=== PATIENT | male | born 1990 | race Caucasian/White ===

== ENCOUNTER 2017-02-08 05:32 | Observation (INO) | payer SELFPAY ==
[2017-02-08] VITALS (7 sets, daily range): BP systolic 106–133; BP diastolic 52–84; PULSE 68–115; RESP 16–18; TEMP 98.1–98.7; O2SAT 95–98
[~2017-02-08] VITALS: Ht 170.2 cm; Wt 64.0 kg
--- NOTE | 2017-02-08 05:55 | PD ---
HPI Chief Complaint: Alcohol/Drug Intoxication Time Seen by Provider: 05:40 Travel History International Travel<30 days: No Contact w/Intl Traveler<30days: No Traveled to known affect area: No History of Present Illness HPI 26-year-old male was brought in by Police Department under [employer] act. Patient was found this morning unsteady on his feet and with confusion. Patient is unable to tell me whether he is abusing any alcohol or drugs. Patient denies any headache. Patient denies any chest pain or shortness of breath. Patient denies abdominal pain. Patient denies any focal weakness or numbness of extremity. Patient states that he has history hepatitis C. Patient has been to the emergency room several times in the past with history of polysubstance abuse and substance-induced mood disorder. PFSH Past Medical History Hx Anticoagulant Therapy: No ADD: Yes Arthritis: No Asthma: No Anxiety: Yes Depression: Yes Heart Rhythm Problems: No Cardiovascular Problems: No High Cholesterol: No Chemotherapy: No Chest Pain: Yes (Tests neg on admit, maybe stress) Congestive Heart Failure: No COPD: No Cerebrovascular Accident: No Diabetes: No Diminished Hearing: No Gastrointestinal Disorders: No GERD: No Genitourinary: No Hepatitis: Yes (hep c) Hiatal Hernia: No Hypertension: No Kidney Stones: No Musculoskeletal: No Neurologic: No Psychiatric: No Reproductive: No Respiratory: No Migraines: No Renal Failure: No Seizures: No Sleep Apnea: No Ulcer: No Past Surgical History Abdominal Surgery: No Cardiac Surgery: No Ear Surgery: No Endocrine Surgery: No Eye Surgery: No Genitourinary Surgery: No Gynecologic Surgery: No Hysterectomy: No Neurologic Surgery: No Oral Surgery: No Thoracic Surgery: No Other Surgery: No Social History Alcohol Use: Yes (EVERYDAY ) Tobacco Use: Yes (1/2 PPD) Substance Use: Yes (HEROIN, DILAUDID, COCAINE) Allergies-Medications (Allergen,Severity, Reaction): Coded Allergies: Egg Allergy (Verified Allergy, Unknown, rash, 08/31/16) developes light skin rash Reported Meds & Prescriptions Reported Meds & Active Scripts Active No Active Prescriptions or Reported Medications Review of Systems General / Constitutional: No: Fever Eyes: No: Visual changes HENT: No: Headaches Cardiovascular: No: Chest Pain or Discomfort Respiratory: No: Shortness of Breath Gastrointestinal: No: Abdominal Pain Genitourinary: No: Dysuria Musculoskeletal: No: Pain Skin: No Rash Neurologic: No: Weakness Psychiatric: No: Depression Endocrine: No: Polydipsia Hematologic/Lymphatic: No: Easy Bruising Physical Exam Narrative GENERAL: Well-nourished, well-developed patient. SKIN: Warm and dry. HEAD: Normocephalic. EYES: No scleral icterus. No injection or drainage. NECK: Supple, trachea midline. No JVD or lymphadenopathy. CARDIOVASCULAR: Regular rate and rhythm without murmurs, gallops, or rubs. RESPIRATORY: Breath sounds equal bilaterally. No accessory muscle use. GASTROINTESTINAL: Abdomen soft, non-tender, nondistended. MUSCULOSKELETAL: No cyanosis, or edema. BACK: Nontender without obvious deformity. No CVA tenderness. Neurologic exam: Patient with confusion. Patient moves all extremity well. No obvious focal neurological deficit. Data Data Last Documented VS Vital Signs Date Time Temp Pulse Resp B/P Pulse Ox O2 Delivery O2 Flow Rate FiO2 02/08/17 05:38 98.1 115 18 133/84 98 Orders Complete Blood Count With Diff (02/08/17 05:50) Comprehensive Metabolic Panel (02/08/17 05:50) Drug Screen, Random Urine (02/08/17 05:50) Alcohol (Ethanol) (02/08/17 05:50) Iv Access Insert/Monitor (02/08/17 05:50) Ecg Monitoring (02/08/17 05:50) Oximetry (02/08/17 05:50) Restraints Non-Violent GURVINDER.Q3H (02/08/17 06:08) Lorazepam Inj (Ativan Inj) (02/08/17 06:15) Labs Laboratory Tests Test 02/08/17 05:54 White Blood Count 11.3 TH/MM3 Red Blood Count 4.36 MIL/MM3 Hemoglobin 13.8 GM/DL Hematocrit 39.7 % Mean Corpuscular Volume 91.1 FL Mean Corpuscular Hemoglobin 31.7 PG Mean Corpuscular Hemoglobin 34.8 % Concent Red Cell Distribution Width 12.9 % Platelet Count 211 TH/MM3 Mean Platelet Volume 9.3 FL Neutrophils (%) (Auto) 74.3 % Lymphocytes (%) (Auto) 14.8 % Monocytes (%) (Auto) 9.7 % Eosinophils (%) (Auto) 0.8 % Basophils (%) (Auto) 0.4 % Neutrophils # (Auto) 8.4 TH/MM3 Lymphocytes # (Auto) 1.7 TH/MM3 Monocytes # (Auto) 1.1 TH/MM3 Eosinophils # (Auto) 0.1 TH/MM3 Basophils # (Auto) 0.0 TH/MM3 CBC Comment DIFF FINAL Differential Comment MDM Medical Decision Making Medical Screen Exam Complete: Yes Emergency Medical Condition: Yes Differential Diagnosis Differential diagnosis including substance-induced mood disorder, electrolyte abnormality, dehydration, psychiatric issues. Narrative Course 26-year-old male was brought in by Police Department under [facility] for possible substance abuse. Patient with history of substance-induced mood disorder in the past. Patient will be monitor. Patient is agitated. Ativan 1 mg IV given. May repeat Ativan again. Patient was positive for cocaine in the past. Scripts No Active Prescriptions or Reported Meds Chano Mejía MD Feb 08, 2017 05:55
[2017-02-08 06:14] LABS: AUTOMATED NEUTROPHIL # 8.4 TH/MM3 (1.8-7.7); BASOPHIL % 0.4 % (0.0-2.0); EOSINOPHIL # 0.1 TH/MM3 (0-0.4); EOSINOPHIL % 0.8 % (0.0-4.0); HEMATOCRIT 39.7 % (39.0-51.0); HEMO FLAGS DIFF FINAL; LYMPH % 14.8 % (9.0-44.0); LYMPHOCYTE # 1.7 TH/MM3 (1.0-4.8); MEAN CELL VOLUME 91.1 FL (80.0-100.0); MEAN CORPUSCULAR HEMOGLOBIN 31.7 PG (27.0-34.0); MEAN CORPUSCULAR HGB CONC 34.8 % (32.0-36.0); MONO % 9.7 % (0.0-8.0); NEUT % 74.3 % (16.0-70.0); PLATELET COUNT 211 TH/MM3 (150-450); RED BLOOD COUNT 4.36 MIL/MM3 (4.50-5.90); RED CELL DISTRIBUTION WIDTH 12.9 % (11.6-17.2); WHITE BLOOD COUNT 11.3 TH/MM3 (4.0-11.0)
[2017-02-08] MEDS ORDERED: LORazepam 2 MG/ML VIAL IV PUSH ONE ×2 (06:15→06:45)
[2017-02-08 06:37] LABS: ALKALINE PHOSPHATASE 78 U/L (45-117); ALT (GPT) 188 U/L (12-78); ANION GAP 10 MEQ/L (5-15); AST (GOT) 92 U/L (15-37); BICARBONATE 25.1 MEQ/L (21.0-32.0); BLOOD UREA NITROGEN 17 MG/DL (7-18); CHLORIDE 103 MEQ/L (98-107); GLOMERULAR FILTRATION RATE 52 ML/MIN (>89); POTASSIUM 3.4 MEQ/L (3.5-5.1); SODIUM (NA) 138 MEQ/L (136-145); TOTAL BILIRUBIN ADULT 0.4 MG/DL (0.2-1.0)
[2017-02-08] MEDS ORDERED: SODIUM CHLOR 0.9% 1000 ML INJ 1,000 ML IV ONE (11:30)
[2017-02-08 12:18] LABS: AMPHETAMINE, URINE NEG (NEG); BARBITURATES, URINE NEG (NEG); COCAINE, URINE POS (NEG)
--- NOTE | 2017-02-08 13:17 | RADRPT ---
EXAM DATE/TIME: 02/08/2017 12:55 [facility] COMPARISON: No previous studies available for comparison. INDICATIONS : Altered mental status today. RADIATION DOSE: 56.35 CTDIvol (mGy) MEDICAL HISTORY : Hepatitis C. SURGICAL HISTORY : Non-responsive. ENCOUNTER: Initial ACUITY: 1 day PAIN SCALE: Non-responsive LOCATION: Bilateral head TECHNIQUE: Multiple contiguous axial images were obtained of the head. Using automated exposure control and adj ustment of the mA and/or kV according to patient size, radiation dose was kept as low as reasonably a chievable to obtain optimal diagnostic quality images. FINDINGS: CEREBRUM: The ventricles are normal for age. No evidence of midline shift, mass lesion, hemorrhage or acute in farction. No extra-axial fluid collections are seen. POSTERIOR FOSSA: The cerebellum and brainstem are intact. The 4th ventricle is midline. The cerebellopontine angle i s unremarkable. EXTRACRANIAL: The visualized portion of the orbits is intact. SKULL: The calvaria is intact. No evidence of skull fracture. CONCLUSION: Normal examination. Rosamaria Torres MD on February 08, 2017 at 13:15 Board Certified Radiologist. This report was verified electronically.
--- NOTE | 2017-02-08 14:44 | PD ---
Data Data Last Documented VS Vital Signs Date Time Temp Pulse Resp B/P Pulse Ox O2 Delivery O2 Flow Rate FiO2 02/08/17 09:30 86 16 118/56 98 Room Air 02/08/17 05:38 98.1 Orders Complete Blood Count With Diff (02/08/17 05:50) Comprehensive Metabolic Panel (02/08/17 05:50) Drug Screen, Random Urine (02/08/17 05:50) Alcohol (Ethanol) (02/08/17 05:50) Iv Access Insert/Monitor (02/08/17 05:50) Ecg Monitoring (02/08/17 05:50) Oximetry (02/08/17 05:50) Restraints Non-Violent GURVINDER.Q3H (02/08/17 06:08) Lorazepam Inj (Ativan Inj) (02/08/17 06:15) Restraints Violent (02/08/17 06:38) Lorazepam Inj (Ativan Inj) (02/08/17 06:45) Sodium Chlor 0.9% 1000 Ml Inj (Ns 1000 M (02/08/17 11:30) Ct Brain W/O Iv Contrast(Rout) (02/08/17 ) Cath For Specimen (02/08/17 11:26) Admit Order (Ed Use Only) (02/08/17 14:40) Labs Laboratory Tests Test 02/08/17 02/08/17 05:54 11:35 White Blood Count 11.3 TH/MM3 Red Blood Count 4.36 MIL/MM3 Hemoglobin 13.8 GM/DL Hematocrit 39.7 % Mean Corpuscular Volume 91.1 FL Mean Corpuscular Hemoglobin 31.7 PG Mean Corpuscular Hemoglobin 34.8 % Concent Red Cell Distribution Width 12.9 % Platelet Count 211 TH/MM3 Mean Platelet Volume 9.3 FL Neutrophils (%) (Auto) 74.3 % Lymphocytes (%) (Auto) 14.8 % Monocytes (%) (Auto) 9.7 % Eosinophils (%) (Auto) 0.8 % Basophils (%) (Auto) 0.4 % Neutrophils # (Auto) 8.4 TH/MM3 Lymphocytes # (Auto) 1.7 TH/MM3 Monocytes # (Auto) 1.1 TH/MM3 Eosinophils # (Auto) 0.1 TH/MM3 Basophils # (Auto) 0.0 TH/MM3 CBC Comment DIFF FINAL Differential Comment Sodium Level 138 MEQ/L Potassium Level 3.4 MEQ/L Chloride Level 103 MEQ/L Carbon Dioxide Level 25.1 MEQ/L Anion Gap 10 MEQ/L Blood Urea Nitrogen 17 MG/DL Creatinine 1.60 MG/DL Estimat Glomerular Filtration 52 ML/MIN Rate Random Glucose 110 MG/DL Calcium Level 9.2 MG/DL Total Bilirubin 0.4 MG/DL Aspartate Amino Transf 92 U/L (AST/SGOT) Alanine Aminotransferase 188 U/L (ALT/SGPT) Alkaline Phosphatase 78 U/L Total Protein 7.2 GM/DL Albumin 4.1 GM/DL Ethyl Alcohol Level LESS THAN 3 MG/DL Urine Opiates Screen NEG Urine Barbiturates Screen NEG Urine Amphetamines Screen NEG Urine Benzodiazepines Screen NEG Urine Cocaine Screen POS Urine Cannabinoids Screen NEG MDM Supervised Visit with [facility]: No Narrative Course This case is checked out to me by Dr. Mejía at 7 AM. As patient has a long history of substance abuse and does have cocaine positive tox screen. He has altered mental status. Initially was agitated and he did get leather restraints and a dose of IV Ativan at 6:45 AM I reviewed his labs which are essentially normal I did a brain CT due to the extended period of altered mental status and it is normal I expected him to wake up after a couple of hours and be discharged but his mental status persists as poor. He is very lethargic and confused and been sleeping for many hours. I've been observing him now for 9 hours and he is still altered and lethargic. Due to this factor I have discussed with the medical residents who will do a 23 are observation for altered mental status Diagnosis Primary Impression: Altered mental status Qualified Code: R40.1 - Stupor Additional Impression: Substance abuse Admitting Information Admitting Physician Requests: Observation Scripts No Active Prescriptions or Reported Meds Kranthi Matute MD Feb 08, 2017 14:43
[2017-02-08] MEDS ORDERED: SODIUM CHLORIDE 0.9% FLUSH 10 ML FLUSH IVF PRN (16:15)
[2017-02-08] MEDS ORDERED: LORazepam 2 MG/ML VIAL IV PUSH PRN ×4 (16:15)
[2017-02-08] MEDS ORDERED: LORazepam 1 MG TAB PO PRN (16:15)
[2017-02-08] MEDS ORDERED: FLUMAZENIL 0.5 MG/5 ML VIAL IV PUSH PRN (16:15)
[2017-02-08] MEDS ORDERED: LORazepam 2 MG TAB PO PRN (16:15)
[2017-02-08] MEDS ORDERED: NALOXONE HCL 0.4 MG/ML AMP IV PRN (16:15)
[2017-02-08] MEDS ORDERED: SODIUM CHLOR 0.9% 1000 ML INJ 1,000 ML IV SCH (16:30)
--- NOTE | 2017-02-08 16:42 | HHI.HP ---
[facility] Service Family Medicine Primary Care Physician Unknown Admission Diagnosis persistent AMS from substance abuse Diagnoses: International Travel<30 Days: No Contact w/Intl Traveler<30days: No Known Affected Area: No History of Present Illness Patient is a 26 year old male with psychiatric history presents under [facility] for altered mental status. History is difficult to obtain from patient as he is uncooperative and goes back to sleep quickly. Per EMR records, patient has a history of polysubstance abuse and substance induced mood disorder. His most recent presentation to [facility] was September 04; at that time he presented voluntarily with chest pain and suicidal ideation. He was evaluated by psychiatrist in the ED at that time, suspected to be malingering due to homelessness. He was discharged to [facility] waiting list at that time. The patient offers little during the interview; he answers yes or no questions, some which were repeated, without consistent answers. He does endorse that he used alcohol at 10, not noting whether he met this morning or last night or more distantly. He does not endorse or deny the use of cocaine when it is noted that it was found in his urine. He offers no answers when asked about review of systems other than his chest hurts "a little." (Linda Kumar MD R1) Review of Systems ROS Limitations: Clinical Condition, Intoxication, Uncooperative Cardiovascular: COMPLAINS OF: Chest pain ("a little") (Linda Kumar MD R1) Past Family Social History Past Medical History Patient does not provide. Per EMR, it does not appear that he has any medical conditions but does have a history of polysubstance use and prior suicidal ideation most recently assessed in 08/2016. Past Surgical History Patient does not provide. Reported Medications Patient does not provide a history of medications. Reported Meds & Active Scripts Active No Active Prescriptions or Reported Medications (Linda Kumar MD R1) Allergies: Coded Allergies: Egg Allergy (Verified Allergy, Unknown, rash, 08/31/16) developes light skin rash Active Ordered Medications Inpatient Medications Enoxaparin Sodium (Lovenox Inj) 40 mg Q24H SQ ; Start 02/08/17 at 17:00 Flumazenil (Romazicon Inj) 0.2 mg Q1M PRN IV PUSH SEE LABEL COMMENTS; Start at 16:15 Lorazepam (Ativan Inj) 2 mg Q15M PRN IV PUSH CIWA > 20; Start 02/08/17 at 16:15 Lorazepam (Ativan) 2 mg Q2H PRN PO CIWA 11-14; Start 02/08/17 at 16:15 Naloxone HCl 0.4 mg 0.4 mg UNSCH PRN IV SEE LABEL COMMENTS; Start 02/08/17 at 16:15 Ondansetron HCl (Zofran Odt) 4 mg Q4H PRN PO NAUSEA/VOMITING; Start 02/08/17 at 16:45 Sodium Chloride (NS 1000 ml Inj) 1,000 ml @ 100 mls/hr Q10H IV ; Start at 17:00 Sodium Chloride (NS Flush) 2 ml UNSCH PRN IVF FLUSH AFTER USING IV ACCESS; Start 02/08/17 at 16:15 Family History Unable to obtain Social History Patient endorses use of alcohol at "11" He does not offer any other history. Per EMR, he was homeless in 08/2016 (Linda Kumar MD R1) Physical Exam Vital Signs Vital Signs Date Time Temp Pulse Resp B/P Pulse Ox O2 Delivery O2 Flow Rate FiO2 02/08/17 09:30 86 16 118/56 98 Room Air 02/08/17 07:30 110 16 120/64 97 Room Air 02/08/17 05:38 98.1 115 18 133/84 98 Physical Exam GENERAL: This is a well-nourished, well-developed male, lying in bed sleeping. When he wakes up he mumbles and goes back to sleep. SKIN: There are scattered excoriations on the distal extremities bilaterally without obvious signs of track chu. No ecchymoses. Cool and dry. HEAD: Atraumatic. Normocephalic. No temporal or scalp tenderness. EYES: Pupils dilated to approximately 8 mm. They are equal round and reactive. Pupils seem to follow light but not by command. No scleral icterus. No injection or drainage. ENT: Nose without bleeding or drainage. Not cooperative with exam. Airway patent. NECK: Trachea midline. No JVD or lymphadenopathy. Patient not cooperative with range of motion exam. CARDIOVASCULAR: Regular rate and rhythm without murmurs, gallops, or rubs. RESPIRATORY: Clear to auscultation. Breath sounds equal bilaterally. No wheezes , rales, or rhonchi. GASTROINTESTINAL: Abdomen soft, non-tender, nondistended. No hepato-splenomegaly , or palpable masses. No guarding. Bowel sounds hypoactive. MUSCULOSKELETAL: Extremities without clubbing, cyanosis, or edema. No joint tenderness, effusion, or edema noted. NEUROLOGICAL: Sleeping, arousable but goes back to sleep quickly. Pupils as above. Unable to assess cranial nerves, motor, sensory, strength. Mumbles. Laboratory Laboratory Tests Test 02/08/17 02/08/17 05:54 11:35 White Blood Count 11.3 Red Blood Count 4.36 Hemoglobin 13.8 Hematocrit 39.7 Mean Corpuscular Volume 91.1 Mean Corpuscular Hemoglobin 31.7 Mean Corpuscular Hemoglobin 34.8 Concent Red Cell Distribution Width 12.9 Platelet Count 211 Mean Platelet Volume 9.3 Neutrophils (%) (Auto) 74.3 Lymphocytes (%) (Auto) 14.8 Monocytes (%) (Auto) 9.7 Eosinophils (%) (Auto) 0.8 Basophils (%) (Auto) 0.4 Neutrophils # (Auto) 8.4 Lymphocytes # (Auto) 1.7 Monocytes # (Auto) 1.1 Eosinophils # (Auto) 0.1 Basophils # (Auto) 0.0 CBC Comment DIFF FINAL Differential Comment Sodium Level 138 Potassium Level 3.4 Chloride Level 103 Carbon Dioxide Level 25.1 Anion Gap 10 Blood Urea Nitrogen 17 Creatinine 1.60 Estimat Glomerular Filtration 52 Rate Random Glucose 110 Calcium Level 9.2 Total Bilirubin 0.4 Aspartate Amino Transf 92 (AST/SGOT) Alanine Aminotransferase 188 (ALT/SGPT) Alkaline Phosphatase 78 Total Protein 7.2 Albumin 4.1 Ethyl Alcohol Level LESS THAN 3 Urine Opiates Screen NEG Urine Barbiturates Screen NEG Urine Amphetamines Screen NEG Urine Benzodiazepines Screen NEG Urine Cocaine Screen POS Urine Cannabinoids Screen NEG (Linda Kumar MD R1) Result Diagram: 02/08/17 0554 02/08/17 0554 Imaging Last Impressions Head CT 02/08/17 0000 Signed Impressions: Service Date/Time: Wednesday, February 08, 2017 12:55 - CONCLUSION: Normal examination. Rosamaria Torres MD Course In ED, patient received basic labs including CBC and CMP. He was placed on EKG monitoring and pulse oximetry. EtOH and drug screen levels were drawn. He received 2 separate 2 mg IV doses of Ativan. CT brain was performed due to persistent difficulty in arousal. (Linda Kumar MD R1) Septic Shock Reassessment Heart: Regular rate and rhythm Lungs: Clear Skin: Cold Capillary Refill: Brisk (Linda Kumar MD R1) Assessment and Plan Assessment and Plan 26-year-old male with a history of polysubstance abuse and suicidal ideation presents with altered status. Code Status Full code (Linda Kumar MD R1) Attending Attestation THIS CASE WAS DISCUSSED WITH THE RESIDENT PHYSICIAN. I HAVE REVIEWED THE RECORD AND AGREE WITH THE ABOVE NOTE AND PLAN OF CARE WAS DISCUSSED. I HAVE AUTHORIZED THE ORDER FOR PLACEMENT IN OUT-PATIENT OBSERVATION STATUS. (Gregg Ellington MD) Problem List: (1) Altered mental status Status: Acute Plan: Presented under [place] act with AMS. . Unable to obtain other history due to patient's cooperativeness. Exam unremarkable aside from pupillary dilation in mental status. Neurological exam is nonfocal. -Vital signs unremarkable -Screening labs including CBC, CMP, lactic acid unremarkable -UA is pending -EKG pending -Drug screen positive for cocaine -EtOH and salicylate studies negative -Admitting patient to observation -Maintenance IV fluids -CIWA protocol -Sitter due to EMR records of psychiatric history; we'll need to reassess patient when more alert to determine mood and if he has risk to himself or others (2) Substance abuse Status: Acute Plan: History of polysubstance abuse. Per EMR, patient may be homeless; was homeless as of 08/2016. Will discuss with patient when more cooperative. Studies as above. (3) Fluids/Electrolytes/Nutrition/Prophylaxis Status: Acute Plan: Fluids: NS @ 100ml/hr Electrolytes: monitor and replete as needed Nutrition: Regular diet DVT Prophylaxis: Lovenox 40mg subQ q24hr GI Prophylaxis: Not indicated (Linda Kumar MD R1) Problem Qualifiers (1) Altered mental status: Qualified Code: R40.1 - Stupor Linda Kumar MD R1 Feb 08, 2017 16:42 Gregg Ellington MD Feb 08, 2017 18:36
[2017-02-08] MEDS ORDERED: ONDANSETRON ODT 4 MG TAB PO PRN (16:45)
[2017-02-08] MEDS ORDERED: ENOXAPARIN SODIUM 40 MG/0.4 ML SYRINGE SQ SCH (17:00)
[2017-02-08 17:52] LABS: ACETAMINOPHEN LESS THAN 2.0 MCG/ML (10.0-30.0)
[2017-02-08 17:58] LABS: BLOOD, URINE NEG (NEG); GLUCOSE,URINE NEG (NEG); KETONE, URINE 10 mg/dL (NEG); NITRITE,URINE NEG (NEG); PH, URINE 5.5 (5.0-8.5)
[2017-02-08 18:02] LABS: URINE COLOR STRAW (YELLW/STRAW)
--- NOTE | 2017-02-08 18:35 | HHI.HP ---
HPI Service Family Medicine Primary Care Physician Unknown Admission Diagnosis persistent AMS from substance abuse Diagnoses: (1) Altered mental status (2) Substance abuse (3) Fluids/Electrolytes/Nutrition/Prophylaxis International Travel<30 Days: No Contact w/Intl Traveler<30days: No Known Affected Area: No History of Present Illness 26 yo M presenting to the ED via police under Farias act for altered mental status. Pt. is uncooperative and unwilling/unable to answer questions so history is obtained from the ED and resident note. Pt. has a h/o substance abuse and mood disorder. He was found stumbling and disoriented in the road by police and brought to the ED for evaluation. He has been seen several times in the ED for substance abuse, with the last evaluation 09/04/16 for suicidal thoughts (found to be malingering by psychiatry). Upon presentation to the ED, he was found to be very agitated and required restraints with leather restraints. Lab evaluation was positive for cocaine. He was given Ativan 2mg IV x2 and has been significantly sedate since that time. He was admitted for observation due to continued sedation. Review of Systems ROS Limitations: Clinical Condition, Uncooperative Past Family Social History Past Medical History Patient does not provide. Per EMR, it does not appear that he has any medical conditions but does have a history of polysubstance use and prior suicidal ideation most recently assessed in 08/2016. Past Surgical History Patient does not provide. Allergies: Coded Allergies: Egg Allergy (Verified Allergy, Unknown, rash, 08/31/16) developes light skin rash Family History Unable to obtain Social History Patient endorses use of alcohol at "11" He does not offer any other history. Per EMR, he was homeless in 08/2016 Physical Exam Vital Signs Vital Signs Date Time Temp Pulse Resp B/P Pulse Ox O2 Delivery O2 Flow Rate FiO2 02/08/17 17:00 78 16 127/68 97 Room Air 02/08/17 14:00 68 16 128/70 97 Room Air 02/08/17 12:00 78 16 125/57 95 Room Air 02/08/17 09:30 86 16 118/56 98 Room Air 02/08/17 07:30 110 16 120/64 97 Room Air 02/08/17 05:38 98.1 115 18 133/84 98 Physical Exam GENERAL: Young, healthy appearing male sleeping in bed SKIN: There are scattered excoriations on the distal extremities bilaterally without obvious signs of track chu. No ecchymoses. Cool and dry. HEAD: Atraumatic. Normocephalic. EYES: Pupils dilated to approximately 8 mm. They are equal round and reactive. No scleral icterus. No injection or drainage. NECK: Trachea midline. No JVD or lymphadenopathy. CARDIOVASCULAR: Regular rate and rhythm without murmurs, gallops, or rubs. RESPIRATORY: Clear to auscultation anteriorly GASTROINTESTINAL: Abdomen soft, non-tender, nondistended. No hepato- splenomegaly. MUSCULOSKELETAL: Extremities without clubbing, cyanosis, or edema. NEUROLOGICAL: Sleeping, arousable but uncooperative. Unable to test strength or cranial nerves Laboratory Laboratory Tests Test 02/08/17 02/08/17 02/08/17 05:54 11:35 17:14 White Blood Count 11.3 Red Blood Count 4.36 Hemoglobin 13.8 Hematocrit 39.7 Mean Corpuscular Volume 91.1 Mean Corpuscular Hemoglobin 31.7 Mean Corpuscular Hemoglobin 34.8 Concent Red Cell Distribution Width 12.9 Platelet Count 211 Mean Platelet Volume 9.3 Neutrophils (%) (Auto) 74.3 Lymphocytes (%) (Auto) 14.8 Monocytes (%) (Auto) 9.7 Eosinophils (%) (Auto) 0.8 Basophils (%) (Auto) 0.4 Neutrophils # (Auto) 8.4 Lymphocytes # (Auto) 1.7 Monocytes # (Auto) 1.1 Eosinophils # (Auto) 0.1 Basophils # (Auto) 0.0 CBC Comment DIFF FINAL Differential Comment Sodium Level 138 Potassium Level 3.4 Chloride Level 103 Carbon Dioxide Level 25.1 Anion Gap 10 Blood Urea Nitrogen 17 Creatinine 1.60 Estimat Glomerular Filtration 52 Rate Random Glucose 110 Calcium Level 9.2 Total Bilirubin 0.4 Aspartate Amino Transf 92 (AST/SGOT) Alanine Aminotransferase 188 (ALT/SGPT) Alkaline Phosphatase 78 Total Protein 7.2 Albumin 4.1 Ethyl Alcohol Level LESS THAN 3 Urine Color STRAW Urine Turbidity CLEAR Urine pH 5.5 Urine Specific [place] 1.003 Urine Protein NEG Urine Glucose (UA) NEG Urine Ketones 10 Urine Occult Blood NEG Urine Nitrite NEG Urine Bilirubin NEG Urine Urobilinogen LESS THAN 2.0 Urine Leukocyte Esterase NEG Urine RBC LESS THAN 1 Urine WBC LESS THAN 1 Urine Opiates Screen NEG Urine Barbiturates Screen NEG Urine Amphetamines Screen NEG Urine Benzodiazepines Screen NEG Urine Cocaine Screen POS Urine Cannabinoids Screen NEG Lactic Acid Level 0.7 Salicylates Level LESS THAN 1.7 Acetaminophen Level LESS THAN 2.0 Result Diagram: 02/08/17 0554 02/08/17 0554 Imaging Last Impressions Head CT 02/08/17 0000 Signed Impressions: Service Date/Time: Wednesday, February 08, 2017 12:55 - CONCLUSION: Normal examination. Rosamaria Torres MD Assessment and Plan Assessment and Plan 26-year-old male with a history of polysubstance abuse and suicidal ideation presents with altered status. Problem List: (1) Altered mental status Status: Acute Plan: Presented under Farias act with AMS. . Unable to obtain other history due to patient's cooperativeness. Exam unremarkable aside from pupillary dilation in mental status. Neurological exam is nonfocal. -Vital signs unremarkable -Screening labs including CBC, CMP, lactic acid unremarkable -UA is pending -EKG pending -Drug screen positive for cocaine -EtOH and salicylate studies negative -Admitting patient to observation -Maintenance IV fluids -CIWA protocol (2) Substance abuse Status: Acute Plan: History of polysubstance abuse. Per EMR, patient may be homeless; was homeless as of 08/2016. Will discuss with patient when more cooperative. Studies as above. (3) Fluids/Electrolytes/Nutrition/Prophylaxis Status: Acute Plan: Fluids: NS @ 100ml/hr Electrolytes: monitor and replete as needed Nutrition: Regular diet DVT Prophylaxis: Lovenox 40mg subQ q24hr GI Prophylaxis: Not indicated Physician Certification 2 Midnight Certification Type: Admission for Inpatient Services Order for Inpatient Services The services are ordered in accordance with Medicare regulations or non- Medicare payer requirements, as applicable. In the case of services not specified as inpatient-only, they are appropriately provided as inpatient services in accordance with the 2-midnight benchmark. Estimated LOS (days): 2 2 days is the estimated time the patient will need to remain in the hospital, assuming treatment plan goals are met and no additional complications. Post-Hospital Plan: Home Problem Qualifiers (1) Altered mental status: Qualified Code: R40.1 - Gregg Hinson MD Feb 08, 2017 18:35
[2017-02-08] MEDS: SODIUM CHLOR 0.9% 1000 ML INJ 1,000 ML IV SCH (18:45)
[2017-02-08 18:50] LABS: CREATINE KINASE 958 U/L (39-308)
[2017-02-08 19:15] LABS: CKMB 11.1 NG/ML (0.5-3.6)
[2017-02-08] MEDS ORDERED: CIPROFLOXACIN 500 MG TAB PO SCH (21:00)
[2017-02-09] VITALS: BP 110/57; PULSE 83; RESP 18; TEMP 98.4; O2SAT 97
[2017-02-09 04:00] VITALS: BP 107/51; PULSE 72; RESP 18; TEMP 97; O2SAT 99
[2017-02-09] MEDS: SODIUM CHLOR 0.9% 1000 ML INJ 1,000 ML IV SCH ×2 (05:55→08:28)
[2017-02-09 07:24] LABS: AUTOMATED NEUTROPHIL # 5.2 TH/MM3 (1.8-7.7); BASOPHIL % 0.4 % (0.0-2.0); EOSINOPHIL # 0.1 TH/MM3 (0-0.4); EOSINOPHIL % 1.2 % (0.0-4.0); HEMATOCRIT 40.7 % (39.0-51.0); HEMO FLAGS DIFF FINAL; LYMPH % 19.6 % (9.0-44.0); LYMPHOCYTE # 1.5 TH/MM3 (1.0-4.8); MEAN CELL VOLUME 93.8 FL (80.0-100.0); MEAN CORPUSCULAR HEMOGLOBIN 31.5 PG (27.0-34.0); MEAN CORPUSCULAR HGB CONC 33.6 % (32.0-36.0); MONO % 11.8 % (0.0-8.0); PLATELET COUNT 172 TH/MM3 (150-450); RED BLOOD COUNT 4.34 MIL/MM3 (4.50-5.90); RED CELL DISTRIBUTION WIDTH 13.3 % (11.6-17.2); WHITE BLOOD COUNT 7.7 TH/MM3 (4.0-11.0)
[2017-02-09 07:48] LABS: ALKALINE PHOSPHATASE 66 U/L (45-117); ALT (GPT) 187 U/L (12-78); ANION GAP 8 MEQ/L (5-15); AST (GOT) 104 U/L (15-37); BICARBONATE 23.6 MEQ/L (21.0-32.0); BLOOD UREA NITROGEN 9 MG/DL (7-18); CHLORIDE 109 MEQ/L (98-107); CREATINE KINASE 724 U/L (39-308); GLOMERULAR FILTRATION RATE 47 ML/MIN (>89); POTASSIUM 4.1 MEQ/L (3.5-5.1); SODIUM (NA) 141 MEQ/L (136-145); TOTAL BILIRUBIN ADULT 0.2 MG/DL (0.2-1.0)
[2017-02-09 08:15] VITALS: BP 100/53; PULSE 75; RESP 18; TEMP 97.2; O2SAT 97
[2017-02-09 08:26] LABS: CKMB 6.3 NG/ML (0.5-3.6)
[2017-02-09] MEDS ORDERED: SODIUM CHLOR 0.9% 1000 ML INJ 1,000 ML IV ONE (10:30)
--- NOTE | 2017-02-09 10:31 | HHI.FPPN ---
Subjective Remarks Patient awake and alert. States that he last used heroin and cocaine a few days ago. He feels well this morning. Has not ordered breakfast this morning. ( Zainab Kumar MD) Objective Vitals Vital Signs Date Time Temp Pulse Resp B/P Pulse Ox O2 Delivery O2 Flow Rate FiO2 02/09/17 08:15 97.2 75 18 100/53 97 02/09/17 04:00 97.0 72 18 107/51 99 02/09/17 00:00 98.4 83 18 110/57 97 02/08/17 20:00 98.7 108 18 106/52 97 02/08/17 17:00 78 16 127/68 97 Room Air 02/08/17 14:00 68 16 128/70 97 Room Air 02/08/17 12:00 78 16 125/57 95 Room Air I/O 02/08/17 02/08/17 02/08/17 02/09/17 02/09/17 02/09/17 07:00 15:00 23:00 07:00 15:00 23:00 Intake Total 360 ml Balance 360 ml Intake Oral 360 ml # Voids 2 3 (Zainab Kumar MD) Result Diagram: 02/09/17 0640 02/09/17 0640 Objective Remarks GENERAL: This is a well-nourished, well-developed male, lying in bed, alert SKIN: There are scattered excoriations on the distal extremities bilaterally without obvious signs of track chu. No ecchymoses. Cool and dry. HEAD: Atraumatic. Normocephalic. No temporal or scalp tenderness. EYES: No scleral icterus. No injection or drainage. ENT: Nose without bleeding or drainage. Not cooperative with exam. Airway patent. NECK: Trachea midline. No JVD or lymphadenopathy. CARDIOVASCULAR: Regular rate and rhythm without murmurs, gallops, or rubs. RESPIRATORY: Clear to auscultation. Breath sounds equal bilaterally. No wheezes , rales, or rhonchi. GASTROINTESTINAL: Abdomen soft, non-tender, nondistended. MUSCULOSKELETAL: Extremities without clubbing, cyanosis, or edema. No joint tenderness, effusion, or edema noted. NEUROLOGICAL: Awake and alert. CN II-XII grossly intact. No motor deficit noted on extremity exam. (Zainab Kumar MD) Urinary Catheter: No (Zainab Kumar MD) Vascular Central Line Catheter: No (Zainab Kumar MD) A/P Assessment and Plan 26-year-old male with a history of polysubstance abuse and suicidal ideation presents with altered status. sdw: Drs. Aixa Kumar and Rakel Discharge Planning dc home today (Zainab Kumar MD) Attending Attestation Pt. examined and case discussed with resident physicians I have read the above note and agree with the assessment/plan as discussed with me I was involved in all medical decision making for this patient Gregg Ellington MD (Gregg Ellington MD) Problem List: (1) Altered mental status Status: Acute Plan: Presented under Farias act with AMS, now awake and alert. NO neurological deficit noted. -Vital signs unremarkable -Screening labs including CBC, CMP, lactic acid unremarkable -Head CT normal -UA unremarkable -Drug screen positive for cocaine -EtOH and salicylate studies negative -DC home -Follow up with PCP (2) Substance abuse Status: Chronic Plan: History of polysubstance abuse. Per EMR, patient may be homeless; was homeless as of 08/2016. Encouraged substance cessation, definitely use clean needles if continued IVDU (3) ADI (acute kidney injury) Status: Acute Plan: GFR decreased from 52 to 47. No IV fluids being given at this time -1L NS [place] now then dc home, to follow up with PCP (4) Fluids/Electrolytes/Nutrition/Prophylaxis Status: Acute Plan: Fluids: NS @ 100ml/hr Electrolytes: monitor and replete as needed Nutrition: Regular diet DVT Prophylaxis: Lovenox 40mg subQ q24hr GI Prophylaxis: Not indicated (Zainab Kumar MD) Problem Qualifiers (1) Altered mental status: Qualified Code: R40.1 - Zainab Mayorga MD Feb 09, 2017 10:31 Gregg Ellington MD Feb 09, 2017 17:19
--- NOTE | 2017-02-09 10:41 | HHI.DCPOC ---
Discharge Care Plan Diagnosis: (1) Polysubstance dependence (2) Altered mental status (3) ADI (acute kidney injury) Goals to Promote Your Health * To prevent worsening of your condition and complications, avoid continued substance abuse. Directions to Meet Your Goals Take your medications as prescribed Follow your dietary instruction Follow activity as directed Keep your appointments as scheduled Take your immunizations and boosters as scheduled If your symptoms worsen call your PCP, if no PCP go to Urgent Care Center or Emergency Room Smoking is Dangerous to Your Health. Avoid second hand smoke Call the 24-hour hour crisis hotline for domestic abuse at Zainab Kumar MD Feb 09, 2017 10:41
[2017-02-09 12:16] VITALS: BP 92/48; PULSE 82; RESP 18; TEMP 97.5; O2SAT 96
== END 2017-02-09 16:41 | disposition home or self-care (01) ==
LOC: NEPE 05:32 → NEDA 14:41 → UNDOADMOB 14:41 → N05B 18:47 → NEDA 18:47 → UNDODISOB 02-09 16:41
PROVIDERS: ADMIT Family Medicine; ATTEND Family Medicine
DX: R41.82 Altered mental status, unspecified (principal); F19.10 Other psychoactive substance abuse, uncomplicated; F39 Unspecified mood [affective] disorder; N17.9 Acute kidney failure, unspecified; B19.20 Unspecified viral hepatitis C without hepatic coma; F41.9 Anxiety disorder, unspecified; F32.9 Major depressive disorder, single episode, unspecified; F17.200 Nicotine dependence, unspecified, uncomplicated; Z59.0 Homelessness; Z91.012 Allergy to eggs
CPT/HCPCS: 70450; 80053; 80307; 81001; 82550; 82552; 82948; 83605; 84484; 85025; 96361; 96374; 96376; 99285; G0378; J2060; J7030

== ENCOUNTER 2017-04-07 07:26 | Emergency (ER) | payer SELFPAY ==
[~2017-04-07] VITALS: Ht 170.2 cm; Wt 69.0 kg
[2017-04-07 07:30] VITALS: BP 134/54; PULSE 98; RESP 15; TEMP 98.5; O2SAT 100
--- NOTE | 2017-04-07 07:41 | PD ---
HPI Chief Complaint: Psychiatric Symptoms Time Seen by Provider: 07:34 Travel History International Travel<30 days: No Contact w/Intl Traveler<30days: No Traveled to known affect area: No History of Present Illness HPI Patient is a 26-year-old male seeking psychiatric help for suicidal thoughts. Patient states she's been on a drug tender including cocaine which she last used this morning. States he's wanting to see a psychiatrist this morning and ultimately placed into a rehabilitation facility. Patient states she's been diagnosed with anxiety in the past is taking unprescribed Remeron for this. He also states he has a history of hepatitis C. He has no physical complaints at this time. Denies any chest pain abdominal pain nausea vomiting diarrhea headaches wound. PFSH Past Medical History Hx Anticoagulant Therapy: No ADD: Yes Arthritis: No Asthma: No Anxiety: Yes Depression: Yes Heart Rhythm Problems: No Cardiovascular Problems: No High Cholesterol: No Chemotherapy: No Chest Pain: Yes (Tests neg on admit, maybe stress) Congestive Heart Failure: No COPD: No Cerebrovascular Accident: No Diabetes: No Diminished Hearing: No Gastrointestinal Disorders: No GERD: No Genitourinary: No Hepatitis: Yes (hep c) Hiatal Hernia: No Hypertension: No Kidney Stones: No Musculoskeletal: No Neurologic: No Psychiatric: No Reproductive: No Respiratory: No Migraines: No Renal Failure: No Seizures: No Sleep Apnea: No Ulcer: No Past Surgical History Abdominal Surgery: No Cardiac Surgery: No Ear Surgery: No Endocrine Surgery: No Eye Surgery: No Genitourinary Surgery: No Gynecologic Surgery: No Hysterectomy: No Neurologic Surgery: No Oral Surgery: No Thoracic Surgery: No Other Surgery: No Social History Alcohol Use: Yes (EVERYDAY ) Tobacco Use: Yes (1/2 PPD) Substance Use: Yes (HEROIN, DILAUDID, COCAINE) Allergies-Medications (Allergen,Severity, Reaction): Coded Allergies: Egg Allergy (Verified Allergy, Unknown, rash, 04/07/17) developes light skin rash Reported Meds & Prescriptions Reported Meds & Active Scripts Active Reported Remeron (Mirtazapine) 15 Mg Tab 15 Mg PO HS Prozac (Fluoxetine HCl) 40 Mg Cap 40 Mg PO DAILY Review of Systems Except as stated in HPI: all other systems reviewed are Neg Physical Exam Narrative GENERAL: Well-developed well-nourished, clinically sober in no apparent distress. SKIN: Focused skin assessment warm/dry. HEAD: Atraumatic. Normocephalic. EYES: Pupils equal and round. No scleral icterus. No injection or drainage. ENT: No nasal bleeding or discharge. Mucous membranes pink and moist. NECK: Trachea midline. No JVD. CARDIOVASCULAR: Regular rate and rhythm. No murmur appreciated. RESPIRATORY: No accessory muscle use. Clear to auscultation. Breath sounds equal bilaterally. GASTROINTESTINAL: Abdomen soft, non-tender, nondistended. Hepatic and splenic margins not palpable. MUSCULOSKELETAL: No obvious deformities. No clubbing. No cyanosis. No edema. NEUROLOGICAL: Awake and alert. No obvious cranial nerve deficits. Motor grossly within normal limits. Normal speech. PSYCHIATRIC: Appropriate mood and affect; insight and judgment normal, endorses suicidal ideation, denies homicidal ideation, denies audiovisual hallucination. Data Data Last Documented VS Vital Signs Date Time Temp Pulse Resp B/P Pulse Ox O2 Delivery O2 Flow Rate FiO2 04/07/17 07:53 98.6 87 17 131/83 99 Room Air Orders Complete Blood Count With Diff (04/07/17 07:38) Comprehensive Metabolic Panel (04/07/17 07:38) Psych Screen (04/07/17 07:38) Alcohol (Ethanol) (04/07/17 07:38) Labs Laboratory Tests Test 04/07/17 08:05 White Blood Count 12.6 TH/MM3 Red Blood Count 4.75 MIL/MM3 Hemoglobin 14.4 GM/DL Hematocrit 43.0 % Mean Corpuscular Volume 90.5 FL Mean Corpuscular Hemoglobin 30.3 PG Mean Corpuscular Hemoglobin 33.5 % Concent Red Cell Distribution Width 13.4 % Platelet Count 157 TH/MM3 Mean Platelet Volume 9.4 FL Neutrophils (%) (Auto) 82.0 % Lymphocytes (%) (Auto) 6.6 % Monocytes (%) (Auto) 10.6 % Eosinophils (%) (Auto) 0.3 % Basophils (%) (Auto) 0.5 % Neutrophils # (Auto) 10.3 TH/MM3 Lymphocytes # (Auto) 0.8 TH/MM3 Monocytes # (Auto) 1.3 TH/MM3 Eosinophils # (Auto) 0.0 TH/MM3 Basophils # (Auto) 0.1 TH/MM3 CBC Comment DIFF FINAL Differential Comment Sodium Level 137 MEQ/L Potassium Level 4.6 MEQ/L Chloride Level 103 MEQ/L Carbon Dioxide Level 22.4 MEQ/L Anion Gap 12 MEQ/L Blood Urea Nitrogen 14 MG/DL Creatinine 1.10 MG/DL Estimat Glomerular Filtration 80 ML/MIN Rate Random Glucose 65 MG/DL Calcium Level 9.3 MG/DL Total Bilirubin 1.1 MG/DL Aspartate Amino Transf 385 U/L (AST/SGOT) Alanine Aminotransferase 923 U/L (ALT/SGPT) Alkaline Phosphatase 80 U/L Total Protein 7.1 GM/DL Albumin 4.0 GM/DL Ethyl Alcohol Level LESS THAN 3 MG/DL MDM Medical Decision Making Medical Screen Exam Complete: Yes Emergency Medical Condition: Yes Differential Diagnosis Depression, suicidality, substance abuse. Narrative Course 26-year-old male seen ambulate into the exam room in no apparent distress. On arrival he is calm and pleasant and is plugging his cell phone into the wall. He has no physical complaints or further workup at this time. Basic labs were ordered as part of psychiatric policy/procedure. He is medically stable for psychiatric evaluation disposition at this time. He is on a voluntary status. Patient states he wants see his psychiatrist, he has only passive suicidal statements. Therefore does not meet García act criteria at this time. Diagnosis Primary Impression: Substance induced mood disorder Condition: Stable Gianfranco Adams MD April 07, 2017 07:41
[2017-04-07] MEDS ORDERED: PROZ40CA PO (07:42)
[2017-04-07] MEDS ORDERED: REME15TA PO (07:42)
[2017-04-07 07:53] VITALS: BP 131/83; PULSE 87; RESP 17; TEMP 98.6; O2SAT 99
[2017-04-07 08:26] LABS: AUTOMATED NEUTROPHIL # 10.3 TH/MM3 (1.8-7.7); BASOPHIL # 0.1 TH/MM3 (0-0.2); BASOPHIL % 0.5 % (0.0-2.0); EOSINOPHIL % 0.3 % (0.0-4.0); HEMO FLAGS DIFF FINAL; LYMPH % 6.6 % (9.0-44.0); LYMPHOCYTE # 0.8 TH/MM3 (1.0-4.8); MEAN CELL VOLUME 90.5 FL (80.0-100.0); MEAN CORPUSCULAR HEMOGLOBIN 30.3 PG (27.0-34.0); MEAN CORPUSCULAR HGB CONC 33.5 % (32.0-36.0); MONO % 10.6 % (0.0-8.0); PLATELET COUNT 157 TH/MM3 (150-450); RED BLOOD COUNT 4.75 MIL/MM3 (4.50-5.90); RED CELL DISTRIBUTION WIDTH 13.4 % (11.6-17.2); WHITE BLOOD COUNT 12.6 TH/MM3 (4.0-11.0)
[2017-04-07 08:50] LABS: ALT (GPT) 923 U/L (12-78); ANION GAP 12 MEQ/L (5-15); AST (GOT) 385 U/L (15-37); BICARBONATE 22.4 MEQ/L (21.0-32.0); BLOOD UREA NITROGEN 14 MG/DL (7-18); CHLORIDE 103 MEQ/L (98-107); GLOMERULAR FILTRATION RATE 80 ML/MIN (>89); POTASSIUM 4.6 MEQ/L (3.5-5.1); SODIUM (NA) 137 MEQ/L (136-145)
[2017-04-07 08:52] LABS: ALKALINE PHOSPHATASE 80 U/L (45-117); TOTAL BILIRUBIN ADULT 1.1 MG/DL (0.2-1.0)
--- NOTE | 2017-04-07 11:08 | PD ---
History of Present Illness Chief Complaint: Psychiatric Symptoms Time Seen by Provider: 11:00 Travel History International Travel<30 Days: No Contact w/Intl Traveler<30days: No Known affected area: No Legal Status Legal Status: Voluntary History of Present Illness: 26-year-old male with a significantly long history of substance abuse, currently shooting IV cocaine on a frequent basis. Used cocaine this morning. Has history of hepatitis C from sharing needles. Now stating he wants help with detox/rehabilitation because his self-esteem is low. He is living with his mother in [place]. He is unemployed. He describes symptoms of depressed mood, anhedonia, decreased self-esteem, etc. He is not currently suicidal and has no suicidal or homicidal ideation, plan or intent. He states he has never tried to kill himself. This physician discussed the patient going to [facility] for further evaluation and treatment. Patient agrees to this and states this is his goal. PFSH Past Medical History Hx Anticoagulant Therapy: No ADD: Yes Arthritis: No Asthma: No Anxiety: Yes Depression: Yes Heart Rhythm Problems: No Cardiovascular Problems: No High Cholesterol: No Chemotherapy: No Chest Pain: Yes (Tests neg on admit, maybe stress) Congestive Heart Failure: No COPD: No Cerebrovascular Accident: No Diabetes: No Diminished Hearing: No Gastrointestinal Disorders: No GERD: No Genitourinary: No Hepatitis: Yes (hep c) Hiatal Hernia: No Hypertension: No Kidney Stones: No Musculoskeletal: No Neurologic: No Psychiatric: No Reproductive: No Respiratory: No Migraines: No Renal Failure: No Seizures: No Sleep Apnea: No Ulcer: No Influenza Vaccination: Yes Past Surgical History Surgical History: No Previous Surgery Abdominal Surgery: No Cardiac Surgery: No Ear Surgery: No Endocrine Surgery: No Eye Surgery: No Genitourinary Surgery: No Gynecologic Surgery: No Hysterectomy: No Neurologic Surgery: No Oral Surgery: No Thoracic Surgery: No Other Surgery: No Psychiatric History Psychiatric History Hx Psychiatric Treatment: HX OF INPATIENT PSYCH TREATENT [facility]. Obviously, the patient's main problem psychiatrically is his current substance abuse. As this is not a licensed substance abuse treatment facility, this physician feels the patient should be referred to [facility]. History of Inpatient Treatment: Yes Social History Hx Alcohol Use: Yes (EVERYDAY ) Hx Tobacco Use: Yes (1 PPD) Hx Substance Use: Yes (HEROIN, DILAUDID, COCAINE) Substance Use Type: Alcohol, Crack, Marijuana, Nicotine/Cigarettes, Prescription Medications, Heroin, Cocaine, Synth Opiates-Pain Pills Other Substances Used: Cocaine, heroin Hx of Substance Use Treatment: Yes Allergies-Medications (Allergen,Severity, Reaction): Coded Allergies: Egg Allergy (Verified Allergy, Unknown, rash, 04/07/17) developes light skin rash Reported Meds & Prescriptions Reported Meds & Active Scripts Active Reported Remeron (Mirtazapine) 15 Mg Tab 15 Mg PO HS Prozac (Fluoxetine HCl) 40 Mg Cap 40 Mg PO DAILY Review of Systems Except as stated in HPI: all other systems reviewed are Neg Exam Alert: Yes [place]: Person, Place, Date, Situation Mood: Calm Affect: Appropriate Speech: Clear, Logical Eye Contact: Normal Memory Intact: Immediate, Recent, Remote Insight/Judgement Adequate, except with regard to drug abuse. MDM Medical Decision Making Medical Record Reviewed: Yes Assessment/Plan This physician feels strongly the patient requires substance abuse treatment. He is aware of this and has been to [facility] previously for treatment. No psychiatric intervention is otherwise indicated at this time. Orders Complete Blood Count With Diff (04/07/17 07:38) Comprehensive Metabolic Panel (04/07/17 07:38) Psych Screen (04/07/17 07:38) Drug Screen, Random Urine (04/07/17 07:38) Alcohol (Ethanol) (04/07/17 07:38) Diet Regular Basic (04/07/17 Lunch) Results Vital Signs Date Time Temp Pulse Resp B/P Pulse Ox O2 Delivery O2 Flow Rate FiO2 04/07/17 07:53 98.6 87 17 131/83 99 Room Air 04/07/17 07:30 98.5 98 15 134/54 100 Laboratory Tests Test 04/07/17 08:05 White Blood Count 12.6 Red Blood Count 4.75 Hemoglobin 14.4 Hematocrit 43.0 Mean Corpuscular Volume 90.5 Mean Corpuscular Hemoglobin 30.3 Mean Corpuscular Hemoglobin 33.5 Concent Red Cell Distribution Width 13.4 Platelet Count 157 Mean Platelet Volume 9.4 Neutrophils (%) (Auto) 82.0 Lymphocytes (%) (Auto) 6.6 Monocytes (%) (Auto) 10.6 Eosinophils (%) (Auto) 0.3 Basophils (%) (Auto) 0.5 Neutrophils # (Auto) 10.3 Lymphocytes # (Auto) 0.8 Monocytes # (Auto) 1.3 Eosinophils # (Auto) 0.0 Basophils # (Auto) 0.1 CBC Comment DIFF FINAL Differential Comment Sodium Level 137 Potassium Level 4.6 Chloride Level 103 Carbon Dioxide Level 22.4 Anion Gap 12 Blood Urea Nitrogen 14 Creatinine 1.10 Estimat Glomerular Filtration 80 Rate Random Glucose 65 Calcium Level 9.3 Total Bilirubin 1.1 Aspartate Amino Transf 385 (AST/SGOT) Alanine Aminotransferase 923 (ALT/SGPT) Alkaline Phosphatase 80 Total Protein 7.1 Albumin 4.0 Ethyl Alcohol Level LESS THAN 3 Diagnosis Primary Impression: Cocaine abuse Condition: Stable Chino Woo MD April 07, 2017 11:08
== END 2017-04-07 12:01 | disposition home or self-care (01) ==
LOC: NEPE 07:26
DX: F19.94 Other psychoactive substance use, unspecified with psychoactive substance-induced mood disorder (principal); F14.10 Cocaine abuse, uncomplicated; F17.200 Nicotine dependence, unspecified, uncomplicated; Z86.59 Personal history of other mental and behavioral disorders; Z86.19 Personal history of other infectious and parasitic diseases
CPT/HCPCS: 80053; 80307; 85025; 99283

== ENCOUNTER 2017-05-07 04:40 | Emergency (ER) | payer SELFPAY ==
[~2017-05-07] VITALS: Ht 170.2 cm; Wt 68.0 kg
[~2017-05-07 04:40] MED LIST: PROZ40CA PO; REME15TA PO
[2017-05-07 04:45] VITALS: BP 152/78; PULSE 92; RESP 16; TEMP 99; O2SAT 98
[2017-05-07] MEDS ORDERED: KETOROLAC TROMETHAMINE 30 MG/ML (IVP) VIAL IV PUSH ONE (05:15)
[2017-05-07] MEDS ORDERED: SODIUM CHLOR 0.9% 1000 ML INJ 1,000 ML IV ONE (05:15)
--- NOTE | 2017-05-07 05:21 | PD ---
HPI Chief Complaint: Flank/Kidney Pain Time Seen by Provider: 05:12 Travel History International Travel<30 days: No Contact w/Intl Traveler<30days: No Traveled to known affect area: No History of Present Illness HPI 26-year-old male with history of polysubstance abuse, IV drug use, hepatitis C, presents to the ER today because he states that he used cocaine and heroin earlier today and then started having abdominal pains. He denies any vomiting, fevers, diarrhea, or any other symptoms. He states is currently a 5 out of 10. Modifying Factors: None Associated Signs & Symptoms: Abdominal pain Risk Factors: Polysubstance use PFSH Past Medical History Hx Anticoagulant Therapy: No ADD: Yes Arthritis: No Asthma: No Anxiety: Yes Depression: Yes Heart Rhythm Problems: No Cardiovascular Problems: No High Cholesterol: No Chemotherapy: No Chest Pain: Yes (Tests neg on admit, maybe stress) Congestive Heart Failure: No COPD: No Cerebrovascular Accident: No Diabetes: No Diminished Hearing: No Gastrointestinal Disorders: No GERD: No Genitourinary: No Hepatitis: Yes (hep c) Hiatal Hernia: No Hypertension: No Kidney Stones: No Musculoskeletal: No Neurologic: No Psychiatric: No Reproductive: No Respiratory: No Immunizations Current: Yes Migraines: No Renal Failure: No Seizures: No Sleep Apnea: No Ulcer: No Tetanus Vaccination: < 5 Years Influenza Vaccination: Yes Past Surgical History Abdominal Surgery: No Cardiac Surgery: No Ear Surgery: No Endocrine Surgery: No Eye Surgery: No Genitourinary Surgery: No Gynecologic Surgery: No Hysterectomy: No Neurologic Surgery: No Oral Surgery: No Thoracic Surgery: No Other Surgery: No Social History Alcohol Use: Yes (EVERYDAY ) Tobacco Use: Yes (1 PPD) Substance Use: Yes (HEROIN, DILAUDID, COCAINE) Allergies-Medications (Allergen,Severity, Reaction): Coded Allergies: Egg Allergy (Verified Allergy, Unknown, rash, 05/07/17) developes light skin rash Reported Meds & Prescriptions Reported Meds & Active Scripts Active Reported Prozac (Fluoxetine HCl) 40 Mg Cap 40 Mg PO DAILY Remeron (Mirtazapine) 15 Mg Tab 15 Mg PO HS Review of Systems Except as stated in HPI: all other systems reviewed are Neg Physical Exam Narrative GENERAL: Well-developed young white male patient currently in mild distress. Awake and oriented 3. SKIN: Focused skin assessment warm/dry. HEAD: Atraumatic. Normocephalic. EYES: Pupils equal and round. No scleral icterus. No injection or drainage. ENT: No nasal bleeding or discharge. Mucous membranes pink and moist. NECK: Trachea midline. No JVD. CARDIOVASCULAR: Regular rate and rhythm. No murmur appreciated. RESPIRATORY: No accessory muscle use. Clear to auscultation. Breath sounds equal bilaterally. GASTROINTESTINAL: Abdomen soft, mild left lower quadrant tenderness without guarding or rebound, nondistended. Hepatic and splenic margins not palpable. MUSCULOSKELETAL: No obvious deformities. No clubbing. No cyanosis. No edema. NEUROLOGICAL: Awake and alert. No obvious cranial nerve deficits. Motor grossly within normal limits. Normal speech. PSYCHIATRIC: Appropriate mood and affect; insight and judgment normal. Data Data Last Documented VS Vital Signs Date Time Temp Pulse Resp B/P Pulse Ox O2 Delivery O2 Flow Rate FiO2 05/07/17 04:45 99.0 92 16 152/78 98 Orders Complete Blood Count With Diff (05/07/17 05:07) Comprehensive Metabolic Panel (05/07/17 05:07) Lipase (05/07/17 05:07) Urinalysis - C+S If Indicated (05/07/17 05:07) Iv Access Insert/Monitor (05/07/17 05:07) Ecg Monitoring (05/07/17 05:07) Oximetry (05/07/17 05:07) Sodium Chloride 0.9% Flush (Ns Flush) (05/07/17 05:15) Electrocardiogram (05/07/17 05:13) Sodium Chlor 0.9% 1000 Ml Inj (Ns 1000 M (05/07/17 05:15) Ketorolac Inj (Toradol Inj) (05/07/17 05:15) Ct Abd/Pel W/O Iv Contrast (05/07/17 05:58) Labs Laboratory Tests Test 05/07/17 05:20 White Blood Count 6.3 TH/MM3 Red Blood Count 5.10 MIL/MM3 Hemoglobin 15.5 GM/DL Hematocrit 45.2 % Mean Corpuscular Volume 88.6 FL Mean Corpuscular Hemoglobin 30.5 PG Mean Corpuscular Hemoglobin 34.4 % Concent Red Cell Distribution Width 13.1 % Platelet Count 181 TH/MM3 Mean Platelet Volume 8.5 FL Neutrophils (%) (Auto) 74.4 % Lymphocytes (%) (Auto) 15.8 % Monocytes (%) (Auto) 7.6 % Eosinophils (%) (Auto) 1.7 % Basophils (%) (Auto) 0.5 % Neutrophils # (Auto) 4.7 TH/MM3 Lymphocytes # (Auto) 1.0 TH/MM3 Monocytes # (Auto) 0.5 TH/MM3 Eosinophils # (Auto) 0.1 TH/MM3 Basophils # (Auto) 0.0 TH/MM3 CBC Comment DIFF FINAL Differential Comment Sodium Level 139 MEQ/L Potassium Level 3.9 MEQ/L Chloride Level 101 MEQ/L Carbon Dioxide Level 28.0 MEQ/L Anion Gap 10 MEQ/L Blood Urea Nitrogen 9 MG/DL Creatinine 1.17 MG/DL Estimat Glomerular Filtration 75 ML/MIN Rate Random Glucose 78 MG/DL Calcium Level 9.1 MG/DL Total Bilirubin 0.6 MG/DL Aspartate Amino Transf 270 U/L (AST/SGOT) Alanine Aminotransferase 868 U/L (ALT/SGPT) Alkaline Phosphatase 98 U/L Total Protein 7.8 GM/DL Albumin 4.0 GM/DL Lipase 191 U/L [facility] Medical Decision Making Medical Screen Exam Complete: Yes Emergency Medical Condition: Yes Medical Record Reviewed: Yes Interpretation(s) Laboratory Tests Test 05/07/17 05:20 Neutrophils (%) (Auto) 74.4 % (16.0-70.0) Estimat Glomerular Filtration 75 ML/MIN (>89) Rate Aspartate Amino Transf 270 U/L (15-37) (AST/SGOT) Alanine Aminotransferase 868 U/L (12-78) (ALT/SGPT) Differential Diagnosis Abdominal painsrenal colic versus gastroenteritis versus other acute intra- abdominal processes Narrative Course Lab work did not show significant metabolic issues. UA is pending. Patient put in for a CT for further evaluation. Physician Communication Physician Communication Case is signed out to Dr. Garvey at [address] Disposition based on CT. Diagnosis Primary Impression: Abdominal pain Condition: Stable Sima Montana MD May 07, 2017 05:21
[2017-05-07 05:35] LABS: AUTOMATED NEUTROPHIL # 4.7 TH/MM3 (1.8-7.7); BASOPHIL % 0.5 % (0.0-2.0); EOSINOPHIL # 0.1 TH/MM3 (0-0.4); EOSINOPHIL % 1.7 % (0.0-4.0); HEMATOCRIT 45.2 % (39.0-51.0); HEMO FLAGS DIFF FINAL; LYMPH % 15.8 % (9.0-44.0); MEAN CELL VOLUME 88.6 FL (80.0-100.0); MEAN CORPUSCULAR HEMOGLOBIN 30.5 PG (27.0-34.0); MEAN CORPUSCULAR HGB CONC 34.4 % (32.0-36.0); MONO % 7.6 % (0.0-8.0); NEUT % 74.4 % (16.0-70.0); PLATELET COUNT 181 TH/MM3 (150-450); RED CELL DISTRIBUTION WIDTH 13.1 % (11.6-17.2); WHITE BLOOD COUNT 6.3 TH/MM3 (4.0-11.0)
[2017-05-07 06:00] LABS: ALT (GPT) 868 U/L (12-78); ANION GAP 10 MEQ/L (5-15); AST (GOT) 270 U/L (15-37); BLOOD UREA NITROGEN 9 MG/DL (7-18); CHLORIDE 101 MEQ/L (98-107); GLOMERULAR FILTRATION RATE 75 ML/MIN (>89); POTASSIUM 3.9 MEQ/L (3.5-5.1); SODIUM (NA) 139 MEQ/L (136-145)
[2017-05-07 06:03] LABS: ALKALINE PHOSPHATASE 98 U/L (45-117); TOTAL BILIRUBIN ADULT 0.6 MG/DL (0.2-1.0)
[2017-05-07] MEDS: SODIUM CHLORIDE 0.9% FLUSH 10 ML FLUSH IV FLUSH PRN ×2 (06:06→07:10)
[2017-05-07 07:07] LABS: BLOOD, URINE NEG (NEG); COMMENT (UR) CULT NOT INDICATED; CULTURE IF INDICATED CULT NOT INDICATED; GLUCOSE,URINE NEG (NEG); KETONE, URINE NEG (NEG); MUCUS URINE FEW /lpf (OCC); NITRITE,URINE NEG (NEG); PH, URINE 5.5 (5.0-8.5); URINE COLOR YELLOW (YELLW/STRAW)
[2017-05-07 07:10] VITALS: BP 130/76; PULSE 86; RESP 17; TEMP 97.8; O2SAT 99
[2017-05-07] MEDS ORDERED: hydrOXYzine HCL 50 MG/ML VIAL IM ONE (07:45)
--- NOTE | 2017-05-07 07:52 | RADRPT ---
EXAM DATE/TIME: 05/07/2017 07:18 [facility] COMPARISON: No previous studies available for comparison. INDICATIONS : Bilateral flank pain. ORAL CONTRAST: No oral contrast ingested. RADIATION DOSE: 4.74 CTDIvol (mGy) MEDICAL HISTORY : Hepatitis C. ETOH, IV drug user SURGICAL HISTORY : None. ENCOUNTER: Initial ACUITY: 1 day PAIN SCALE: 6/10 LOCATION: Bilateral flank TECHNIQUE: Volumetric scanning of the abdomen and pelvis was performed. Using automated exposure control and ad justment of the mA and/or kV according to patient size, radiation dose was kept as low as reasonably achievable to obtain optimal diagnostic quality images. FINDINGS: LOWER LUNGS: The visualized lower lungs are clear. LIVER: Visualized portions of the liver demonstrate no significant volume loss or, intrahepatic ductal dilat ation, or gross mass. Gallbladder is mildly distended but unremarkable by CT. SPLEEN: Visualized portions of the spleen demonstrate a likely enlarged spleen. No focal abnormality. PANCREAS: Within normal limits. KIDNEYS: Kidneys are symmetrical in size without evidence for radiopaque renal calculi or hydronephrosis. No s ignificant contour deforming abnormality. ADRENAL GLANDS: Within normal limits. VASCULAR: There is no aortic aneurysm. BOWEL/MESENTERY: Appendix is visualized and appears unremarkable. Bowel is grossly unremarkable without evidence for o bstruction. There is no free fluid or significant drainable fluid collection. ABDOMINAL WALL: Within normal limits. RETROPERITONEUM: There is no lymphadenopathy. BLADDER: No wall thickening or mass. REPRODUCTIVE: Within normal limits. INGUINAL: There is no lymphadenopathy or hernia. MUSCULOSKELETAL: Within normal limits for patient age. CONCLUSION: 1. No radiopaque renal calculi or obstructive uropathy. 2. Normal appendix. 3. Partially imaged spleen appears mildly enlarged. 4. No definitive CT findings to explain patient's abdominal pain. Earl Mobley MD on May 07, 2017 at 7:41 Board Certified Radiologist. This report was verified electronically.
--- NOTE | 2017-05-07 08:25 | PD ---
Physical Exam Date Seen by Provider: May 07, 2017 Time Seen by Provider: 07:00 Narrative Patient signed out to me by Dr. Styles at 7 AM change of shift. We're waiting CT scan of the abdomen pelvis. The patient reportedly used IVD drugs and then started expansion abdominal pain. The CT scan was ordered to rule out kidney stone. There is no evidence of renal or ureteral calculi. There is a slightly enlarged spleen. There are no other acute findings noted. The patient did have elevated liver enzymes and is a history of hepatitis C. He's been given one dose of Vistaril IM. He'll be discharged told to stop using drugs. His been instructed to follow up with his primary care physician. Data Data Last Documented VS Vital Signs Date Time Temp Pulse Resp B/P Pulse Ox O2 Delivery O2 Flow Rate FiO2 05/07/17 07:10 97.8 86 17 130/76 99 Room Air Orders Complete Blood Count With Diff (05/07/17 05:07) Comprehensive Metabolic Panel (05/07/17 05:07) Lipase (05/07/17 05:07) Urinalysis - C+S If Indicated (05/07/17 05:07) Iv Access Insert/Monitor (05/07/17 05:07) Ecg Monitoring (05/07/17 05:07) Oximetry (05/07/17 05:07) Sodium Chloride 0.9% Flush (Ns Flush) (05/07/17 05:15) Electrocardiogram (05/07/17 05:13) Sodium Chlor 0.9% 1000 Ml Inj (Ns 1000 M (05/07/17 05:15) Ketorolac Inj (Toradol Inj) (05/07/17 05:15) Ct Abd/Pel W/O Iv Contrast (05/07/17 05:58) Hydroxyzine Hcl Inj (Vistaril Inj) (05/07/17 07:45) Labs Laboratory Tests Test 05/07/17 05/07/17 05:20 06:15 White Blood Count 6.3 TH/MM3 Red Blood Count 5.10 MIL/MM3 Hemoglobin 15.5 GM/DL Hematocrit 45.2 % Mean Corpuscular Volume 88.6 FL Mean Corpuscular Hemoglobin 30.5 PG Mean Corpuscular Hemoglobin 34.4 % Concent Red Cell Distribution Width 13.1 % Platelet Count 181 TH/MM3 Mean Platelet Volume 8.5 FL Neutrophils (%) (Auto) 74.4 % Lymphocytes (%) (Auto) 15.8 % Monocytes (%) (Auto) 7.6 % Eosinophils (%) (Auto) 1.7 % Basophils (%) (Auto) 0.5 % Neutrophils # (Auto) 4.7 TH/MM3 Lymphocytes # (Auto) 1.0 TH/MM3 Monocytes # (Auto) 0.5 TH/MM3 Eosinophils # (Auto) 0.1 TH/MM3 Basophils # (Auto) 0.0 TH/MM3 CBC Comment DIFF FINAL Differential Comment Sodium Level 139 MEQ/L Potassium Level 3.9 MEQ/L Chloride Level 101 MEQ/L Carbon Dioxide Level 28.0 MEQ/L Anion Gap 10 MEQ/L Blood Urea Nitrogen 9 MG/DL Creatinine 1.17 MG/DL Estimat Glomerular Filtration 75 ML/MIN Rate Random Glucose 78 MG/DL Calcium Level 9.1 MG/DL Total Bilirubin 0.6 MG/DL Aspartate Amino Transf 270 U/L (AST/SGOT) Alanine Aminotransferase 868 U/L (ALT/SGPT) Alkaline Phosphatase 98 U/L Total Protein 7.8 GM/DL Albumin 4.0 GM/DL Lipase 191 U/L Urine Color YELLOW Urine Turbidity HAZY Urine pH 5.5 Urine Specific [place] 1.019 Urine Protein TRACE mg/dL Urine Glucose (UA) NEG mg/dL Urine Ketones NEG mg/dL Urine Occult Blood NEG Urine Nitrite NEG Urine Bilirubin NEG Urine Urobilinogen LESS THAN 2.0 MG/DL Urine Leukocyte Esterase NEG Urine RBC LESS THAN 1 /hpf Urine WBC 1 /hpf Urine Mucus FEW /lpf Microscopic Urinalysis Comment CULT NOT INDICATED MDM Medical Record Reviewed: Yes Supervised Visit with [facility]: No Narrative Course 26-year-old male presents with abdominal pain after using IV drugs. UA was negative for acute process. He has been given one dose of 50 mg of Vistaril IM. Liver enzymes are elevated with history of hepatitis C. He is instructed to stop using drugs. He is instructed to follow up with primary care physician for his elevated liver enzymes. Diagnosis Primary Impression: Abdominal pain Additional Impressions: Polysubstance abuse Elevated liver enzymes Disposition: 01 DISCHARGE HOME Condition: Stable Doyle Garvey MD May 07, 2017 08:25
[2017-05-07 08:47] VITALS: BP 128/77; TEMP 97.7
--- NOTE | 2017-05-07 09:57 | EKG ---
Date Performed: 05/07/2017 Time Performed: 05:25:50 PTAGE: 26 years EKG: Sinus rhythm POSSIBLE LEFT ATRIAL ENLARGEMENT BORDERLINE ECG PREVIOUS TRACING : 09/04/2016 06.21 Compared to previous tracing, nonspecific T wave changes loaiza ve resolved. DOCTOR: Yung Menjivar Interpretating Date/Time 05/07/2017 09:55:30
== END 2017-05-07 08:48 | disposition home or self-care (01) ==
LOC: NEPC 04:40
DX: R10.9 Unspecified abdominal pain (principal); F19.10 Other psychoactive substance abuse, uncomplicated; R74.8 Abnormal levels of other serum enzymes; B19.20 Unspecified viral hepatitis C without hepatic coma; F41.9 Anxiety disorder, unspecified; F32.9 Major depressive disorder, single episode, unspecified; F17.200 Nicotine dependence, unspecified, uncomplicated; Z79.899 Other long term (current) drug therapy
CPT/HCPCS: 74176; 80053; 81001; 83690; 85025; 93005; 96361; 96372; 96374; 99285; J1885; J3410; J7030